=== PATIENT | male | born 1965 | race Caucasian/White ===

== ENCOUNTER 2024-02-14 17:26 | Emergency (ER) | payer OTHER ==
[~2024-02-14] VITALS: Ht 182.9 cm; Wt 113.4 kg
[~2024-02-14 17:26] MED LIST: ALLO100 PO; IBUP800 PO; META800 PO; [UNRECOGNIZED DRUG - REMARK]; [UNRECOGNIZED DRUG - REMARK] PO
[2024-02-14 17:37] VITALS: BP 130/91
[2024-02-14] MEDS ORDERED: HYDROcodone 5-APAP 325 TAB PO ONE (18:05)
[2024-02-14] MEDS ORDERED: Ketorolac Tromethamine 15mg Vial IM ONE (18:05)
[2024-02-14] MEDS ORDERED: RX Prepack 6 Tabs Oxycodone 5mg UD ONE (19:55)
== END 2024-02-14 20:09 | disposition home or self-care (01) ==
LOC: ER 17:26
DX: M25.562 Pain in left knee (principal); M25.561 Pain in right knee; Z79.899 Other long term (current) drug therapy; V68.4XXA Person boarding or alighting a heavy transport vehicle injured in noncollision transport accident, initial encounter
CPT/HCPCS: 73562-LT; 73562-RT; 96372; 99283-25; A9270; J1885

== ENCOUNTER 2024-05-13 06:09 | Day surgery (SDC) | payer OTHER ==
[~2024-05-13] VITALS: Ht 182.9 cm; Wt 113.5 kg
[~2024-05-13 06:09] MED LIST changes: -ALLO300 PO; -FLOMAX0.4 MG PO; -GABA100 PO; -JARDIANCE25 MG PO; -LOSA50 PO; +Lactated Ringer's 1,000 ML IV ONE; -XARELTO20 MG PO
[2024-05-13] MEDS ORDERED: CeFAZolin Sodium 2,000 MG VIAL ONE (06:14)
[2024-05-13] MEDS ORDERED: Tranexamic Acid 100 ML IV ONE (06:15)
[2024-05-13] MEDS ORDERED: ALLO300 PO (06:40)
[2024-05-13] MEDS ORDERED: XARELTO20 MG PO (06:42)
[2024-05-13] MEDS ORDERED: JARDIANCE25 MG PO (06:43)
[2024-05-13] MEDS ORDERED: LOSA50 PO (06:44)
[2024-05-13] MEDS ORDERED: GABA100 PO (06:45)
[2024-05-13] MEDS ORDERED: FLOMAX0.4 MG PO (06:45)
[2024-05-13] MEDS ORDERED: EPINEPhrine HCl 1 MG/ML 1ML Amp ONE ×2 (06:49→07:50)
[2024-05-13] MEDS ORDERED: Lactated Ringer's 1,000 ML IV ONE ×2 (07:00→09:32)
[2024-05-13] MEDS ORDERED: FentaNYL Citrate 50 MCG/ML 2 ML Injection ONE ×3 (07:20→08:54)
[2024-05-13] MEDS ORDERED: Midazolam HCl 1MG / ML 2ML Vial ONE (07:20)
[2024-05-13] MEDS ORDERED: Bupivacaine 0.5% HCl 5 MG/ML 30MLVIAL ONE (07:21)
[2024-05-13] MEDS ORDERED: propofoL 20 ML IV ONE (07:44)
[2024-05-13] MEDS ORDERED: Dexamethasone Sod Phos 10 MG/ML 1ML VIAL ONE (07:50)
[2024-05-13] MEDS ORDERED: Ondansetron HCl 2 MG / ML 2ML Vial ONE (07:50)
--- NOTE | 2024-05-13 07:50 | NUR ---
05/13/24 0750 AILYN KIRKPATRICK 0712 PATIENT REPORTED FEELING "DIZZY LIKE I'M GOING TO PASS OUT". HOB LOWERED TO FLAT, KNEE GATCH RAISED. PATIENT LIPS PALE. BP AT THAT TIME 91/59, PULSE LOW 36. 0714 PULSE 43, BP 77/55. 0715 42 BPM, 77/60 BP. 0718 53 BPM, 102/76. 0720 60 BPM, 120/78 BP. PT LIPS INCREASED IN PINK COLOR. PATIENT STATESPULSE IS "NEVER OVER 60". ANESTHESIA AT BEDSIDE AT 0725, NOTIFIED, STATES OKAY TO PROCEED. CHARGE NURSE ALSO MADE AWARE.
[2024-05-13] MEDS ORDERED: Phenylephrine HCl 100 MCG/ML-NS 10MLSYR (1MG/10ML) ONE (07:51)
[2024-05-13] MEDS ORDERED: Ketorolac Tromethamine 30mg Vial ONE (07:51)
--- NOTE | 2024-05-13 08:13 | NUR ---
05/13/24 0813 Anabella Ortiz 1 MG EPI ADDED TO THE FIRST 3 BAGS OF LR FOR IRRIGATION AT JOINT.
[2024-05-13] MEDS ORDERED: Labetalol HCL 5 MG/ML 4ML Injection (Single Dose) ONE (09:21)
[2024-05-13 11:15] VITALS: BP 99/66
--- NOTE | 2024-05-13 11:16 | NUR ---
05/13/24 1116 Eugene Gonzalez, INCENTIVE SPIROMETER WAS GIVEN TO PATIENT. PT EDUCATED AND DEMONSTRATED USE OF IS. PT O2 IN RA REMAINED ABOVE 95% ESPECIALLY WITH USE OF IS. PT OXY PRESCRIPTION HANDED TO . POLAR PACK SENT WITH AND PATIENT.
== END 2024-05-13 11:11 | disposition home or self-care (01) ==
LOC: ORSCSDS 06:09
PROVIDERS: Orthopaedic Surgery Sports Medicine
PROC: 0MRN4KZ Replacement of Right Knee Bursa and Ligament with Nonautologous Tissue Substitute, Percutaneous Endoscopic Approach (ICD-10-PCS; principal; 2024-05-13 07:30)
DX: S83.511A Sprain of anterior cruciate ligament of right knee, initial encounter (principal); S83.281A Other tear of lateral meniscus, current injury, right knee, initial encounter; S83.241A Other tear of medial meniscus, current injury, right knee, initial encounter; Y93.39 Activity, other involving climbing, rappelling and jumping off; E11.9 Type 2 diabetes mellitus without complications; I10 Essential (primary) hypertension; G47.33 Obstructive sleep apnea (adult) (pediatric); Z86.718 Personal history of other venous thrombosis and embolism; Z79.01 Long term (current) use of anticoagulants; Z79.84 Long term (current) use of oral hypoglycemic drugs; Z79.899 Other long term (current) drug therapy
CPT/HCPCS: 82947; C1713; C1762; C1889; J0171; J0690; J1100; J1885; J2250; J2371; J2405; J2704; J3010; J7120

== ENCOUNTER → 2024-05-13 | Outpatient (CLI) | payer OTHER ==
[~2024-05-13] MED LIST changes: +ALLO300 PO; +FLOMAX0.4 MG PO; +GABA100 PO; +JARDIANCE25 MG PO; +LOSA50 PO; +XARELTO20 MG PO
== END | disposition home or self-care (01) ==
LOC: LAB 03:30 → LAB SHORT 03:30
DX: A04.8 Other specified bacterial intestinal infections (principal)
CPT/HCPCS: 87338

== ENCOUNTER 2024-07-22 12:03 | Day surgery (SDC) | payer OTHER ==
[2024-07-22] VITALS (9 sets, daily range): BP systolic 109–134; BP diastolic 70–93
[~2024-07-22] VITALS: Ht 182.9 cm; Wt 110.0 kg
[~2024-07-22 12:03] MED LIST changes: +ALLO300 PO; +FLOMAX0.4 MG PO; +GABA100 PO; +GLIP5 PO; +JARDIANCE25 MG PO; +LOSA50 PO; -Lactated Ringer's 1,000 ML IV ONE; +XARELTO20 MG PO
[2024-07-22] MEDS ORDERED: GABA300 PO (12:59)
[2024-07-22 13:34] LABS: Hematocrit 46.9 % (37.0-53.0); Hemoglobin 15.9 g/dL (13.5-17.5); Mean Corpuscular HGB 28.9 pg (26.0-34.0); Mean Corpuscular HGB Conc 33.9 g/dL (31.5-36.5); Mean Corpuscular Volume 85 fL (80-100); Mean Platelet Volume 10.6 fL (9.1-12.4); Platelet Count 156 K/mm3 (150-400); RDW Coefficient Variation 12.9 % (11.7-14.2); Red Blood Cell Count 5.51 M/mm3 (4.30-5.90); White Blood Cell Count 5.61 K/mm3 (4.00-11.30)
[2024-07-22] MEDS ORDERED: Heparin Sodium 1000 Units/ML 10ML MDV ONE ×2 (13:51→14:01)
[2024-07-22] MEDS ORDERED: NS 1,000 ML IV ONE ×2 (13:52→13:56)
[2024-07-22] MEDS ORDERED: FentaNYL Citrate 50 MCG/ML 2 ML Injection ONE ×2 (13:56→15:00)
[2024-07-22] MEDS ORDERED: Midazolam HCl 1MG / ML 2ML Vial ONE ×2 (13:56→14:59)
[2024-07-22 13:58] LABS: International Normalized Ratio 1.02; Prothrombin Time Results 10.9 Sec (9.7-11.5)
[2024-07-22 14:00] LABS: Bun/Creatinine Ratio 21.7 (12.0-20.0); Calcium, Blood 9.2 mg/dL (8.5-10.1); Creatinine, Blood 0.78 mg/dL (0.60-1.20); Potassium, Blood 3.8 mmol/L (3.5-5.5)
--- NOTE | 2024-07-22 16:09 | NUR ---
REPORT RECEIVED, SITE TO LEFT KNEE INTACT, NO ACUTE CONCENRS, FAMILY AT BEDSIDE, GIVEN COFFEE AND SANDWICH FROM STAFF, VSS, A/O, DENIES NEEDS OTHERWISE, D/C PENDING.
--- NOTE | 2024-07-22 17:08 | NUR ---
DISCUSSED D/C INSTRUCTIONS WITH PATIENT/FAMILY EARLIER, SPECIFICALLY KEEP DRY, NO HEAVY LIFTING, S/SX INFECTION, CALL/RETURN IF ISSUE, ELEVATE ABOVE HEART AND PRESSURE IF BLEED. VSS, IV REMOVED, PATIENT DRESSED, LEFT WITH FAMILY AT 1700 TO PERSONAL VEHICLE TAKEN BY WHEELCHAIR.
== END 2024-07-22 23:00 | disposition home or self-care (01) ==
LOC: MHTC 12:03
PROVIDERS: Student in an Organized Health Care Education/Training Program
DX: I82.512 Chronic embolism and thrombosis of left femoral vein (principal); I10 Essential (primary) hypertension; E78.5 Hyperlipidemia, unspecified; E11.9 Type 2 diabetes mellitus without complications; Z79.84 Long term (current) use of oral hypoglycemic drugs; Z79.01 Long term (current) use of anticoagulants; Z79.899 Other long term (current) drug therapy; Z88.8 Allergy status to other drugs, medicaments and biological substances
CPT/HCPCS: 37248; 75820; 76937; 76998; 80048; 85027; 85610; 99152; 99153; C1725; C1769; C1887; C1894; J1644; J2250; J3010; J7030; Q9967

== ENCOUNTER 2025-03-10 06:07 | Day surgery (SDC) | payer OTHER ==
[~2025-03-10] VITALS: Ht 182.9 cm; Wt 112.3 kg
[~2025-03-10 06:07] MED LIST changes: +GABA300 PO
[2025-03-10] MEDS ORDERED: Tranexamic Acid 100 ML IV ONE (06:18)
[2025-03-10] MEDS ORDERED: CeFAZolin Sodium 2,000 MG VIAL ONE (06:19)
[2025-03-10] MEDS ORDERED: FentaNYL Citrate 50 MCG/ML 2 ML Injection ONE (06:57)
[2025-03-10] MEDS ORDERED: Midazolam HCl 1MG / ML 2ML Vial ONE (06:58)
[2025-03-10] MEDS ORDERED: Bupivacaine HCl 0.25% 30 ML Injection ONE (07:00)
--- NOTE | 2025-03-10 07:01 | NUR ---
03/10/25 0701 AILYN KIRKPATRICK AT BEDSIDE
[2025-03-10] MEDS ORDERED: Vancomycin HCl 1000 MG ADDvantage ONE (07:05)
[2025-03-10] MEDS ORDERED: Insulin Regular 100 UNIT/ML 10ML Vial ONE (07:15)
[2025-03-10] MEDS ORDERED: Phenylephrine HCl 100 MCG/ML-NS 10MLSYR (1MG/10ML) ONE (07:37)
[2025-03-10] MEDS ORDERED: ePHEDrine Sulfate 50 MG/ML 1ML Injection ONE (07:51)
[2025-03-10] MEDS ORDERED: Glycopyrrolate 0.2 MG/ML 5ML VIAL ONE (07:53)
[2025-03-10] MEDS ORDERED: HYDROmorphone HCl/Pf 1MG SYR ONE (08:19)
[2025-03-10] MEDS ORDERED: Ketamine HCl 100 MG / ML 5ML Vial ONE (09:04)
[2025-03-10 10:42] VITALS: BP 111/69
--- NOTE | 2025-03-10 10:46 | NUR ---
03/10/25 1046 Dash Rich PT ROUSABLE BUT VERY DROWSY UPON ARRIVAL IN SDU. HE REPORTS 8/10 L KNEE PAIN WHEN ASKED (FLACC 0/10) BUT IS FREQUENTLY FALLING ASLEEP.
== END 2025-03-10 13:07 | disposition home or self-care (01) ==
LOC: ORSCSDS 06:07
PROVIDERS: Orthopaedic Surgery Sports Medicine
PROC: 0MRP47Z Replacement of Left Knee Bursa and Ligament with Autologous Tissue Substitute, Percutaneous Endoscopic Approach (ICD-10-PCS; principal; 2025-03-10 07:30)
DX: S83.512A Sprain of anterior cruciate ligament of left knee, initial encounter (principal); M23.204 Derangement of unspecified medial meniscus due to old tear or injury, left knee; M17.12 Unilateral primary osteoarthritis, left knee; I48.0 Paroxysmal atrial fibrillation; Z79.01 Long term (current) use of anticoagulants; I10 Essential (primary) hypertension; E11.9 Type 2 diabetes mellitus without complications; G47.33 Obstructive sleep apnea (adult) (pediatric); E66.9 Obesity, unspecified; Z68.33 Body mass index [BMI] 33.0-33.9, adult; Z79.84 Long term (current) use of oral hypoglycemic drugs; Z79.899 Other long term (current) drug therapy; Z86.718 Personal history of other venous thrombosis and embolism
CPT/HCPCS: 82947; C1713; C1762; C1889; J0166; J0690; J1171; J1815; J2250; J2371; J2704; J3010; J3373; J7120